=== PATIENT | female | born 1995 | race Caucasian/White ===

== ENCOUNTER 2017-01-21 11:47 | Outpatient (CLI) | payer OTHER ==
--- NOTE | 2017-01-21 14:12 | RAD ---
FOUR VIEWS LEFT KNEE: Date: 01-21-17 Comparison: None. History: Twisted knee getting out of a truck, heard a pop. FINDINGS: No knee joint effusion. No displaced fracture or evidence of dislocation is seen. IMPRESSION: No acute osseous abnormality. POS: [facility]
== END 2017-01-21 11:48 | disposition home or self-care (01) ==
LOC: MADRAD 11:47
PROVIDERS: ATTEND Family Medicine

== ENCOUNTER 2017-06-05 18:20 | Emergency (ER) | payer SELFPAY | END 2017-06-05 18:41 | disposition home or self-care (01) | LOC: MADERS 18:20 | DX: R59.0 Localized enlarged lymph nodes (principal) | CPT/HCPCS: 99282 ==